=== PATIENT | male | born 1975 | race Caucasian/White ===

== ENCOUNTER 2022-11-20 10:33 | Inpatient (IN) | payer BC ==
[2022-11-20] MEDS ORDERED: VERAPAMIL 2.5 MG/ML 2 ML AMP ONE (11:06)
[2022-11-20] MEDS ORDERED: HEPARIN SODIUM 1,000 UN/ML (10ML VL) ONE (11:08)
[2022-11-20] MEDS ORDERED: LIDOCAINE 1% INJ 10MG/ML (20 ML MDV) SQ ONE ×2 (11:54→11:55)
[2022-11-20] MEDS ORDERED: VERAPAMIL SYRINGE (5 MG/10 ML) INTRAARTER ONE (11:55)
[2022-11-20] MEDS ORDERED: fentaNYL (PF) 50 MCG/ML 2 ML AMP ONE (11:56)
[2022-11-20] MEDS ORDERED: fentaNYL (PF) 50 MCG/ML 2 ML AMP IV ONE (11:57)
[2022-11-20] MEDS ORDERED: IV FLUID CONTINUATION 1,000 ML IV ONE (12:02)
[2022-11-20] MEDS ORDERED: HEPARIN SODIUM 1,000 UN/ML (10ML VL) IV ONE (12:07)
[2022-11-20] MEDS ORDERED: MIDAZOLAM 2 MG/2 ML VIAL IV ONE (12:08)
[2022-11-20] MEDS ORDERED: IOPAMIDOL-370 200ML BTL INJ ONE (12:36)
[2022-11-20] MEDS ORDERED: MAG HYDROX/AL HYDROX/SIMETH 30 ML CUP PO PRN (12:43)
[2022-11-20] MEDS ORDERED: ATROPINE SULFATE 0.1 MG/ML 10ML SYRINGE IV PRN (12:43)
[2022-11-20] MEDS ORDERED: RX INFO: IV CONTRAST WAS GIVEN 1 EACH MISC MISCELLANE PRN (12:43)
[2022-11-20] MEDS ORDERED: NITROGLYCERIN SL TABS 0.4 MG TAB SUBLINGUAL PRN (12:43)
[2022-11-20] MEDS ORDERED: ZOLPIDEM 5 MG TAB PO PRN (12:43)
[2022-11-20] MEDS ORDERED: SODIUM CHLORIDE 0.9% 1,000 ML in EMPTY BAG 1 BAG IV SCH (12:45)
--- NOTE | 2022-11-20 12:49 | P.CARDCATH ---
Date of Procedure: 11/20/22 Description of Procedure: PERCUTANEOUS TRANSLUMINAL CORONARY ANGIOPLASTY CLINICAL INFORMATION: The patient is a 47-year-old male who presented to [facility] with symptoms of exertional chest discomfort and no evidence of myocardial infarction, underwent cardiac catheterization and was found to have critical crow nosis involving the proximal LAD . Recommendations were made regarding angioplasty and stenting. The procedure as well as the risks and the complications were discussed with the patient who was in full understanding and agreement. PROCEDURE: Using guidewire exchange technique the 6-[place] sheath in the right radial artery was exchanged to a new 6-[place] sheath. A 6 [place] EBU 3.75 guiding catheter was introduced into the system. After cannulating the left main, a 0.014 BMW J was advanced across the lesion and positioned distally. Following that a 2.5 x 12 mm Treck balloon was advanced and inflated at 8 atmosphere. Following that and after removing the balloon an [place] IVUS catheter was introduced and images were obtained. After removing the catheter a 4.0 x 23 mm Xience rosemarie point was advanced. It was dilated at 16 chela. Repeat intravascular ultrasound imaging was performed and subsequently a 4.5 x 15 mm NC Treck balloon was advanced and inflation at 10 chela were done. After the last inflation, after appropriate wait, the balloon and the guidewire were withdrawn back into the guiding catheter. Images were obtained and repeated. Those images reveal stable successful stenting. At that point, the guiding catheter, the balloon, and guidewire were removed. The sheath was removed. Hemostasis was obtained with deployment of a TR band. There were no immediate complic ations. The patient was returned to the room in stable condition. Of note, the patient received 7000 units of heparin as well as Plavix. His ACT was followed. There was no immediate complications. He had chest discomfort and EKG changes that resolved at the end of the procedure RESULTS: Successful stenting of the proximal LAD with reduction of stenosis from 95 % to less than 5 %. RECOMMENDATIONS: The patient will continue on aspirin and Plavix for 6 months without any interruption in addition to aggressive coronary risks modifications. The findings and recommendations were discussed with the patient and the family, they are in full understanding and agreement. Duration of sedation: 38 minutes
[2022-11-20] MEDS: METOPROLOL TARTRATE 25 MG TAB PO SCH (20:12)
[2022-11-20] MEDS ORDERED: ATORVASTATIN 80 MG TAB PO SCH (21:00)
[2022-11-21 08:22] LABS: African American GFR (CKD) >90 (>60 ml/min/1.73 sqM); Anion Gap 6 mmol/L; Blood Urea Nitrogen 6 mg/dL (9-20); Carbon Dioxide 28 mmol/L (22-30); Chloride 105 mmol/L (98-107); Glucose 109 mg/dL (74-99); Non-African American GFR(CKD) >90 (>60 ml/min/1.73 sqM); Potassium 4.1 mmol/L (3.5-5.1); Sodium 139 mmol/L (137-145)
[2022-11-21] MEDS: METOPROLOL TARTRATE 25 MG TAB PO SCH (08:45)
[2022-11-21 08:47] VITALS: TEMP 97.8
[2022-11-21] MEDS ORDERED: CLOPIDOGREL 75 MG TAB PO SCH (09:00)
[2022-11-21] MEDS ORDERED: ASPIRIN 81 MG PO SCH (09:00)
--- NOTE | 2022-11-21 10:00 | P.PN ---
Subjective Progress Note Date: 11/21/22 HISTORY OF PRESENT ILLNESS: Patient is status post cardiac catheterization with Dr. Garsia with stenting of the proximal LAD with reduction of stenosis from 95% to less than 5%. Patient examined this morning at the bedside. Patient denies chest pain or pressure. He denies shortness of breath. Vital signs are stable. Right radial cath site with pulse present. Patient has been ambulating to the bathroom without difficulty. He is hoping to be discharged home today. PHYSICAL EXAM: VITAL SIGNS: Reviewed. GENERAL: Well-developed in no acute distress. NECK: Supple. No JVD or thyromegaly LUNGS: Respirations even and unlabored. Lungs essentially clear to auscultation bilaterally. HEART: Regular rate and rhythm. S1 and S2 heard. EXTREMITIES: Normal range of motion. No clubbing or cyanosis. Peripheral pulses intact. No lower extremity edema ASSESSMENT: Non-STEMI, status post cardiac catheterization with stenting of the proximal LAD PLAN: Continue telemetry regular therapy with aspirin and Plavix Continue high-intensity statin Continue metoprolol 2-D echo has been ordered. Await results Patient may be discharged home this afternoon from a cardiac standpoint and follow up on an outpatient basis with Dr. Nascimento Nurse practitioner note has been reviewed by physician. Signing provider agrees with the documented findings, assessment, and plan of care. Objective - Vital Signs Vital signs: Vital Signs Temp 97.8 F 11/21/22 08:47 Pulse 72 11/21/22 08:47 Resp 18 11/21/22 08:47 BP 119/72 11/21/22 08:47 Pulse Ox 97 11/21/22 08:47 FiO2 21 11/21/22 07:52 Intake & Output 11/20/22 11/21/22 11/21/22 18:59 06:59 18:59 Intake Total 50 Balance 50 Weight 93.18 kg Intake: IV 50 Other: Voiding Method Toilet Toilet # Voids 1 2 - Labs CBC & Chem 7: 11/21/22 07:47 Labs: Abnormal Lab Results - Last 24 Hours (Table) 11/21/22 Range/Units 07:47 BUN 6 L (9-20) mg/dL Creatinine 0.63 L (0.66-1.25) mg/dL Glucose 109 H (74-99) mg/dL
--- NOTE | 2022-11-21 11:56 | CA ---
Transthoracic Echo Report Name: Fredy Kee Age: 47 Gender: M : 1975 Exam Date: 11/21/2022 08:52 Exam Location: [facility] Ht (in): 70 Wt (lb): 205 Ordering Physician: Francois Garsia MD ([id number]) Attending/Referring Phys: Technical Sourcing Recruiter [place] Procedure CPT: Indications: CAD Cardiac Hx: Stent Technical Quality: Good Contrast 1: Total Dose (mL): Contrast 2: Total Dose (mL): MEASUREMENTS (Male / Female) Normal Values 2D ECHO LV Diastolic Diameter PLAX 5.2 cm 4.2 - 5.9 / 3.9 - 5.3 cm IVS Diastolic Thickness 1.1 cm 0.6 - 1.0 / 0.6 - 0.9 cm LVPW Diastolic Thickness 1.1 cm 0.6 - 1.0 / 0.6 - 0.9 cm LV Relative Wall Thickness 0.4 RV Internal Dim ED PLAX 3.1 cm Aortic Root Diameter 3.1 cm LA Systolic Diameter LX 3.7 cm 3.0 - 4.0 / 2.7 - 3.8 cm LV Diastolic Volume MOD BP 74.8 cm??? 67 - 155 / 56 - 104 cm??? LV Systolic Volume MOD BP 40.5 cm??? 22 - 58 / 19 - 49 cm??? LV Ejection Fraction MOD BP 45.8 % >= 55 % LV Diastolic Volume MOD 4C 81.3 cm??? LV Systolic Volume MOD 4C 40.2 cm??? LV Ejection Fraction MOD 4C 50.6 % LV Diastolic Length 4C 7.1 cm LV Systolic Length 4C 6.3 cm LV Diastolic Volume MOD 2C 66.2 cm??? LV Systolic Volume MOD 2C 34.5 cm??? LV Ejection Fraction MOD 2C 47.8 % LV Diastolic Length 2C 6.8 cm LV Systolic Length 2C 5.8 cm Ascending Aorta Diameter 3.2 cm DOPPLER AV Peak Velocity 92.7 cm/s AV Peak Gradient 3.4 mmHg MR Peak Velocity 333.3 cm/s MR Peak Gradient 44.4 mmHg Mitral E Point Velocity 54.2 cm/s Mitral A Point Velocity 50.2 cm/s Mitral E to A Ratio 1.1 MV Deceleration Time 153.9 ms TR Peak Velocity 169.6 cm/s TR Peak Gradient 11.5 mmHg Right Ventricular Systolic Press 16.5 mmHg FINDINGS Left Ventricle Left ventricular ejection fraction is estimated at 50-55 %. Left ventricular cavity size normal. Mildly increased septal wall thickness. Mildly decreased left ventricular ejection fraction. Right Ventricle Normal right ventricular size and function. Right ventricular systolic pressure within normal limits. Right Atrium Normal right atrial size. Left Atrium Normal left atrial size. Mitral Valve Structurally normal mitral valve. Trace to mild mitral regurgitation. Aortic Valve Trileaflet aortic valve no aortic stenosis. No aortic valve stenosis or regurgitation. Tricuspid Valve Structurally normal tricuspid valve. Trace to mild tricuspid regurgitation. Pulmonic Valve Structurally normal pulmonic valve. No pulmonic regurgitation. Pericardium Normal pericardium. No pericardial effusion. Aorta Normal size aortic root and proximal ascending aorta. CONCLUSIONS Normal LV size with preserved systolic function mild concentric LVH. Minimal mitral and tricuspid regurgitation. No pericardial effusion. Previewed by: Dr. Roxanna Mckee MD (Electronically Signed) Final Date: 21 Nov 2022 11:55
[2022-11-21 12:00] VITALS: BMI 29.5
--- NOTE | 2022-11-21 12:12 | P.HPIM ---
History of Present Illness 47-year-old pleasant male presents to the Hospital with Symptoms of Unstable Angina. Patient regarding vision found to have stenosis of LAD and was transferred to [facility] for sending of LAD patient underwent stenting of LAD clinically doing well echo cardiac exam is within normal limits patient will be discharged on Dilantin platelet therapy statin and beta jerome. REVIEW OF SYSTEMS: CONSTITUTIONAL: No fever, no malaise, no fatigue. HEENT: No recent visual problems or hearing problems. Denied any sore throat. CARDIOVASCULAR: No chest pain, orthopnea, PND, no palpitations, no syncope. PULMONARY: No shortness of breath, no cough, no hemoptysis. GASTROINTESTINAL: No diarrhea, no nausea, no vomiting, no abdominal pain. NEUROLOGICAL: No headaches, no weakness, no numbness. HEMATOLOGICAL: Denies any bleeding or petechiae. GENITOURINARY: Denies any burning micturition, frequency, or urgency. MUSCULOSKELETAL/RHEUMATOLOGICAL: Denies any joint pain, swelling, or any muscle pain. ENDOCRINE: Denies any polyuria or polydipsia. The rest of the 14-point review of systems is negative. PHYSICAL EXAMINATION: GENERAL: The patient is alert and oriented x3, not in any acute distress. Well developed, well nourished. HEENT: Pupils are round and equally reacting to light. EOMI. No scleral icterus. No conjunctival pallor. Normocephalic, atraumatic. No pharyngeal erythema. No thyromegaly. CARDIOVASCULAR: S1 and S2 present. No murmurs, rubs, or gallops. PULMONARY: Chest is clear to auscultation, no wheezing or crackles. ABDOMEN: Soft, nontender, nondistended, normoactive bowel sounds. No palpable organomegaly. MUSCULOSKELETAL: No joint swelling or deformity. EXTREMITIES: No cyanosis, clubbing, or pedal edema. NEUROLOGICAL: Gross neurological examination did not reveal any focal deficits. SKIN: No rashes. Assessment and plan -Unstable angina: Status post coronary catheterization and stenting to LAD -Hypertension discontinue Norvasc patient will be discharged on metoprolol 25 t wice a day instead patient will check the blood pressure Past Medical History Past Medical History: Hypertension History of Any Multi-Drug Resistant Organisms: None Reported Past Anesthesia/Blood Transfusion Reactions: No Reported Reaction Past Psychological History: No Psychological Hx Reported Smoking Status: Former smoker Medications and Allergies Home Medications Medication Instructions Recorded Confirmed Type Aspirin 81 mg PO DAILY #90 tab 11/21/22 Rx Atorvastatin [Lipitor] 80 mg PO HS #90 tab 11/21/22 Rx Clopidogrel [Plavix] 75 mg PO DAILY #90 tab 11/21/22 Rx Metoprolol Tartrate [Lopressor] 25 mg PO BID #180 tab 11/21/22 Rx Nitroglycerin Sl Tabs [Nitrostat] 0.4 mg SUBLINGUAL Q5M PRN #100 tab 11/21/22 Rx Allergies Allergy/AdvReac Type Severity Reaction Status Date / Time No Known Allergies Allergy Verified 11/21/22 09:55 Physical Exam Vitals: Vital Signs Temp Pulse Resp BP Pulse Ox FiO2 11/21/22 08:47 97.8 F 72 18 119/72 97 11/21/22 07:52 97 21 11/21/22 04:00 70 16 109/72 97 11/21/22 01:57 66 16 11/20/22 23:53 66 16 107/68 98 11/20/22 20:00 97.9 F 77 16 132/84 99 11/20/22 15:06 79 16 133/88 99 11/20/22 14:06 75 16 124/86 11/20/22 13:35 80 16 126/96 96 11/20/22 13:20 82 16 117/87 98 11/20/22 13:05 84 16 138/88 98 11/20/22 12:50 72 16 136/81 96 Intake and Output 11/20/22 11/21/22 11/21/22 22:59 06:59 14:59 Other: Voiding Method Toilet Toilet Toilet # Voids 2 1 Weight 93.18 kg 93.18 kg Results CBC & Chem 7: 11/21/22 07:47 Labs: Abnormal Lab Results - Last 24 Hours (Table) 11/21/22 Range/Units 07:47 BUN 6 L (9-20) mg/dL Creatinine 0.63 L (0.66-1.25) mg/dL Glucose 109 H (74-99) mg/dL Thrombosis Risk Factor Assmnt - Choose All That Apply Any of the Below Risk Factors Present?: No
[2022-11-21 13:26] VITALS: BP 112/64; PULSE 74; RESP 16
[2022-11-21 16:21] LABS: Chol/HDL Ratio 2.17 Ratio; LDL Cholesterol,Calculated 101.4 mg/dL (0.0-131.0); VLDL Calculation 18.58 mg/dL (5.00-40.00)
--- NOTE | 2022-11-22 01:02 | P.DS ---
Providers Date of admission: 11/20/22 11:11 Expected date of discharge: 11/21/22 Attending physician: Rafael Cantor Consults: 11/20/22 12:43 Consult Physician Routine Consulting Provider: [facility] Consult Reason/Comments: Post Interventional Patient Do you want consulting provider notified?: Already Contacted Primary care physician: BRENT Leija Hospital Course: Final diagnosis -Unstable angina: Status post coronary catheterization and stenting to LAD -Hypertension Discharge disposition Patient is being discharged in a stable condition with guarded prognosis to home. Patient will follow-up with Dr. Leela Schulte in the outpatient setting upon discharge. Patient is to continue with medication regimen as mentioned below along with close outpatient follow-up with cardiology as scheduled. Total time taken is greater than 35 minutes. Hospital course This is a 47-year-old male who was recently admitted from [facility] in transferred here in [facility] to receive stenting and has had stenting to the LAD with monitoring overnight and has been cleared by cardiology. Please refer to previous note for further HPI. Currently no reports of chest pain, shortness of breath, or palpitations. Patient is afebrile. No reports of nausea or vomiting and patient is tolerating diet. Patient will be discharged home today. Physical exam: Gen: This is a 47-year-old male who is awake, alert and oriented 3, well developed, well-nourished HEENT: Head is atraumatic, normocephalic. Pupils equal, round. Sclerae is anicteric. NECK: Supple. No JVD. No lymphadenopathy. No thyromegaly. LUNGS: Clear to auscultation. No wheezes or rhonchi. No intercostal retractions. HEART: Regular rate and rhythm. No murmur. ABDOMEN: Soft. Bowel sounds are present. No masses. No tenderness. EXTREMITIES: No pedal edema. No calf tenderness. NEUROLOGICAL: Patient is awake, alert and oriented x3. Cranial nerves 2 through 12 are grossly intact. Please refer to medication reconciliation sheet for a list of medications. The impression and plan of care has been dictated by Hattie Castrejon, Nurse Practitioner as directed. Dr. Devaughn MD I have performed a history and examination and MDM of this patient, discussed the same with the dictator, and agree with the dictator's assessment and plan as written ,documented as a scribe. Based on total visit time, I have performed more than 50% of the visit. Patient Condition at Discharge: Stable Plan - Discharge Summary Discharge Rx Participant: No New Discharge Prescriptions: New Aspirin 81 mg PO DAILY #90 tab Atorvastatin [Lipitor] 80 mg PO HS #90 tab Metoprolol Tartrate [Lopressor] 25 mg PO BID #180 tab Nitroglycerin Sl Tabs [Nitrostat] 0.4 mg SUBLINGUAL Q5M PRN #100 tab PRN Reason: Chest Pain Clopidogrel [Plavix] 75 mg PO DAILY #90 tab Discontinued amLODIPine [Norvasc] 5 mg PO DAILY Discharge Medication List Aspirin 81 mg PO DAILY #90 tab 11/21/22 [Rx] Atorvastatin [Lipitor] 80 mg PO HS #90 tab 11/21/22 [Rx] Clopidogrel [Plavix] 75 mg PO DAILY #90 tab 11/21/22 [Rx] Metoprolol Tartrate [Lopressor] 25 mg PO BID #180 tab 11/21/22 [Rx] Nitroglycerin Sl Tabs [Nitrostat] 0.4 mg SUBLINGUAL Q5M PRN #100 tab 11/21/22 [Rx] Follow up Appointment(s)/Referral(s): Francois Garsia MD [STAFF PHYSICIAN] - 1 Week (Office will call you to schedule follow up appoitment.) Leela Schulte NPC [Primary Care Provider] - 11/22/22 12:00 pm Patient Instructions/Handouts: *Surgery [facility] - After Heart Catheterization - General Ii Farmworker Instructions, Chest Pain (DC) Discharge Disposition: HOME SELF-CARE
== END 2022-11-21 13:15 | disposition home or self-care (01) | DRG 247 ==
LOC: 3SCARD 11:11
PROVIDERS: ADMIT Internal Medicine; ATTEND Internal Medicine
PROC: 027034Z Dilation of Coronary Artery, One Artery with Drug-eluting Intraluminal Device, Percutaneous Approach (ICD-10-PCS; principal; 2022-11-20 10:50)
DX: I21.4 Non-ST elevation (NSTEMI) myocardial infarction (principal); I10 Essential (primary) hypertension; I25.110 Atherosclerotic heart disease of native coronary artery with unstable angina pectoris; Z87.891 Personal history of nicotine dependence; Z79.82 Long term (current) use of aspirin; Z79.899 Other long term (current) drug therapy; Z79.02 Long term (current) use of antithrombotics/antiplatelets; Z28.310 Unvaccinated for COVID-19
CPT/HCPCS: 80048; 80061; 83036; 92978; 93306; 94760

== ENCOUNTER → 2023-08-25 | Outpatient (CLI) | payer BC ==
[2023-08-25 13:40] LABS: Basophils # (A) 0.05 X 10*3/uL (0.00-0.10); Basophils % (A) 0.8 %; Eosinophils % (A) 6.8 %; HCT 44.1 % (39.6-50.0); HGB 15.5 g/dL (13.0-17.0); Lymphocytes # (A) 1.92 X 10*3/uL (0.90-5.00); Lymphocytes % (A) 32.5 %; MCH 33.7 pg (27.0-32.0); MCHC 35.1 g/dL (32.0-37.0); MCV 95.9 FL (80.0-97.0); Mean Platelet Volume 8.5 FL (9.5-12.2); Monocytes # (A) 0.73 X 10*3/uL (0.20-1.00); Monocytes % (A) 12.4 %; NRBC Per 100 WBC 0 X 10*3/uL (0.00-0.01); Neutrophils # (A) 2.79 X 10*3/uL (1.80-7.70); Neutrophils % (A) 47.3 %; Platelet Count 254 X 10*3/uL (140-440); RDW 12.8 % (11.5-14.5)
[2023-08-25 13:53] LABS: ALT 49 U/L (10-49); AST 36 U/L (14-35); Alkaline Phosphatase 69 U/L (41-126); BUN/Creat Ratio 11.75 Ratio (12.00-20.00); Blood Urea Nitrogen 9.4 mg/dL (9.0-27.0); Calcium 9.8 mg/dL (8.7-10.3); Carbon Dioxide 23.9 mmol/L (21.6-31.8); Chloride 102 mmol/L (96-109); Chol/HDL Ratio 1.97 Ratio; Globulin 2.5 g/dL (1.6-3.3); Glucose 99 mg/dL (70-110); LDL Cholesterol,Calculated 71.8 mg/dL (0.0-131.0); Potassium 4.1 mmol/L (3.5-5.5); Sodium 140 mmol/L (135-145); Total Bilirubin 1.1 mg/dL (0.3-1.2); Total Protein 7.5 g/dL (6.2-8.2); VLDL Calculation 12.16 mg/dL (5.00-40.00)
== END | disposition home or self-care (01) ==
LOC: LABWHC1 08:07
PROVIDERS: ATTEND Internal Medicine
DX: Z00.00 Encounter for general adult medical examination without abnormal findings (principal); Z11.59 Encounter for screening for other viral diseases
CPT/HCPCS: 36415; 80053; 80061; 84443; 85025; 86803

== ENCOUNTER → 2024-10-11 | Outpatient (CLI) | payer SELFPAY ==
[2024-10-12 06:24] LABS: Basophils # (A) 0.04 X 10*3/uL (0.00-0.10); Basophils % (A) 0.8 %; Eosinophils # (A) 0.38 X 10*3/uL (0.04-0.35); Eosinophils % (A) 8.1 %; Lymphocytes # (A) 1.59 X 10*3/uL (0.90-5.00); Lymphocytes % (A) 33.7 %; MCHC 33.3 g/dL (32.0-37.0); MCV 96.1 FL (80.0-97.0); Mean Platelet Volume 8.7 FL (9.5-12.2); Monocytes # (A) 0.56 X 10*3/uL (0.20-1.00); Monocytes % (A) 11.9 %; NRBC Per 100 WBC 0 X 10*3/uL (0.00-0.01); Neutrophils # (A) 2.14 X 10*3/uL (1.80-7.70); Neutrophils % (A) 45.3 %; Platelet Count 236 X 10*3/uL (140-440); RBC 4.37 X 10*6/uL (4.40-5.60); RDW 12.2 % (11.5-14.5); WBC 4.72 X 10*3/uL (4.50-10.00)
[2024-10-12 10:31] LABS: ALT 73 U/L (10-49); AST 64 U/L (14-35); Albumin 4.6 g/dL (3.8-4.9); Albumin/Globulin Ratio 1.92 Ratio (1.60-3.17); Alkaline Phosphatase 64 U/L (41-126); BUN/Creat Ratio 13.12 Ratio (12.00-20.00); Blood Urea Nitrogen 10.5 mg/dL (9.0-27.0); Calcium 9.1 mg/dL (8.7-10.3); Carbon Dioxide 25.3 mmol/L (21.6-31.8); Chloride 103 mmol/L (96-109); Chol/HDL Ratio 1.69 Ratio; Globulin 2.4 g/dL (1.6-3.3); Glucose 92 mg/dL (70-110); LDL Cholesterol,Calculated 42.7 mg/dL (0.0-131.0); Magnesium 1.8 mg/dL (1.5-2.4); Potassium 4.6 mmol/L (3.5-5.5); Sodium 141 mmol/L (135-145); Total Bilirubin 0.7 mg/dL (0.3-1.2); VLDL Calculation 11.28 mg/dL (5.00-40.00)
== END | disposition home or self-care (01) ==
LOC: LABWHC1 10:37
PROVIDERS: ATTEND Internal Medicine
DX: I10 Essential (primary) hypertension (principal)
CPT/HCPCS: 36415; 80053; 80061; 83735; 84443; 85025

== ENCOUNTER → 2024-10-24 | Outpatient (CLI) | payer BC ==
--- NOTE | 2024-10-24 08:11 | US ---
EXAMINATION TYPE: US liver DATE OF EXAM: 10/24/2024 COMPARISON: NONE CLINICAL INDICATION: Male, 49 years old with history of R74.01ELEVATION OF LEVELS OF LIVER TRANSAMINA SE LE; Hx HTN and high cholesterol, drinks alcohol every day. TECHNIQUE: Grayscale and color Doppler imaging of the right upper quadrant was performed. FINDINGS: EXAM MEASUREMENTS: Liver Length: 16.4 cm Gallbladder Wall: 0.2 cm CBD: Unable to identify cm Right Kidney: 12.7 x 5.0 x 5.9 cm REVENUE DIRECTOR NOTES: Pancreas: Tail obscured by overlying bowel gas Liver: Increased attenuation, decreased visualization of vessels suggestive of fatty infiltrate Gallbladder: wnl Evidence for sonographic Morris's sign: No CBD: Obscured by overlying bowel gas Right Kidney: wnl Visualized portion of the pancreas is unremarkable. The liver demonstrates diffusely mild increased e chogenicity without focal lesion. No surface nodularity identified. Gallbladder demonstrates no wall thickening, surrounding fluid or gallstones. Negative sonographic Morris's sign. Common bile duct is obscured by overlying bowel gas. Right kidney demonstrates no solid mass, shadowing calculus, or hydr onephrosis. IMPRESSION: 1. No ultrasound evidence for acute process. 2. Mild diffuse echogenic appearance of the liver which is most commonly seen with hepatic steatosis. [facility], , 10/24/2024 8:09 AM
== END | disposition home or self-care (01) ==
LOC: RADUSWWP 06:56
PROVIDERS: ATTEND Internal Medicine
DX: E78.00 Pure hypercholesterolemia, unspecified (principal); R74.01 Elevation of levels of liver transaminase levels; I10 Essential (primary) hypertension
CPT/HCPCS: 76705

== ENCOUNTER → 2025-01-24 | Outpatient (CLI) | payer BC ==
[2025-01-24 13:23] LABS: Basophils # (A) 0.03 X 10*3/uL (0.00-0.10); Basophils % (A) 0.7 %; Eosinophils # (A) 0.24 X 10*3/uL (0.04-0.35); Eosinophils % (A) 5.9 %; HCT 40.1 % (39.6-50.0); HGB 13.6 g/dL (13.0-17.0); Immature Grans, Automated 0.20 %; Lymphocytes # (A) 1.39 X 10*3/uL (0.90-5.00); Lymphocytes % (A) 34.4 %; MCH 32.7 pg (27.0-32.0); MCHC 33.9 g/dL (32.0-37.0); MCV 96.4 FL (80.0-97.0); Monocytes # (A) 0.72 X 10*3/uL (0.20-1.00); Monocytes % (A) 17.8 %; NRBC Per 100 WBC 0 X 10*3/uL (0.00-0.01); Neutrophils # (A) 1.65 X 10*3/uL (1.80-7.70); Neutrophils % (A) 41.0 %; Platelet Count 211 X 10*3/uL (140-440); RBC 4.16 X 10*6/uL (4.40-5.60); RDW 12.6 % (11.5-14.5); WBC 4.04 X 10*3/uL (4.50-10.00)
[2025-01-24 13:58] LABS: Cholesterol 128.00 mg/dL (0.00-200.00); HDL Cholesterol 66.80 mg/dL (40.00-60.00); LDL Cholesterol,Calculated 50.0 mg/dL (0.0-131.0); Magnesium 2.0 mg/dL (1.5-2.4); Triglycerides 56.20 mg/dL (0.00-149.00); VLDL Calculation 11.24 mg/dL (5.00-40.00)
[2025-01-24 13:59] LABS: ALT 38 U/L (10-49); AST 34 U/L (14-35); Albumin 4.7 g/dL (3.8-4.9); Albumin/Globulin Ratio 1.88 Ratio (1.60-3.17); Alkaline Phosphatase 59 U/L (41-126); Anion Gap 12.20 mmol/L (4.00-12.00); BUN/Creat Ratio 10.89 Ratio (12.00-20.00); Blood Urea Nitrogen 9.8 mg/dL (9.0-27.0); Calcium 9.3 mg/dL (8.7-10.3); Carbon Dioxide 25.8 mmol/L (21.6-31.8); Chloride 101 mmol/L (96-109); Globulin 2.5 g/dL (1.6-3.3); Glucose 96 mg/dL (70-110); Potassium 4.2 mmol/L (3.5-5.5); Sodium 139 mmol/L (135-145); Total Protein 7.2 g/dL (6.2-8.2)
== END | disposition home or self-care (01) ==
LOC: LABWHC1 08:02
PROVIDERS: ATTEND Internal Medicine
DX: I10 Essential (primary) hypertension (principal); E55.9 Vitamin D deficiency, unspecified
CPT/HCPCS: 36415; 80053; 80061; 82306; 83735; 85025